=== PATIENT | male | born 1960 | race Two or more races ===

== ENCOUNTER 2025-06-06 19:03 | Emergency (ER) | payer OTHER ==
[~2025-06-06] VITALS: Ht 170.2 cm; Wt 88.0 kg
[2025-06-06] MEDS ORDERED: CHILDREN'S ASPI81 MG PO (19:59)
[2025-06-06] MEDS ORDERED: LIPITOR40 MG PO (19:59)
[2025-06-06] MEDS ORDERED: METFORMIN HCL1000 MG (19:59)
[2025-06-06] MEDS ORDERED: 0.9 % SODIUM CHLORIDE 1,000 ML IV ONE (20:45)
[2025-06-06] MEDS ORDERED: LEVALBUTEROL HCL 1.25 MG/3 ML SOLUTION IH ONE ×2 (21:04→21:15)
[2025-06-06] MEDS ORDERED: METHYLPREDNISOLONE SOD SUCC 125 MG VIAL IV ONE (21:15)
[2025-06-06 21:25] LABS: ABG PH 7.427 (7.35-7.45); ABG PO2 72.2 mmHg (80-100); BICARBONATE 22.2 mmol/l (23-25); o2 21 %
[2025-06-06 21:27] LABS: BASO % 0.3 % (0.1-1.2); EOS # 0.01 (0.04-0.54); EOS % 0.1 % (0.7-7.0); LYMPH # 0.82 (1.18-3.74); LYMPH % 5.9 % (19.3-53.1); MEAN PLATELET VOLUME 9.10 fl (9.4-12.4); MONO # 1.29 (0.24-0.82); MONO % 9.4 % (4.7-12.5); NEUT # 11.56 (1.56-6.13); NEUT % 83.8 % (34.0-71.1); RED CELL DISTRIBUTION WIDTH 12.3 % (11.6-14.4)
[2025-06-06] MEDS ORDERED: METHYLPREDNISOLONE SOD SUCC 125 MG VIAL ONE (21:27)
[2025-06-06 21:45] LABS: COVID-19 AG NEGATIVE (NEGATIVE)
[2025-06-06] MEDS ORDERED: CEFTRIAXONE SODIUM 1,000 MG VIAL IV ONE (21:45)
[2025-06-06] MEDS ORDERED: CEFTRIAXONE SODIUM 1,000 MG VIAL ONE (21:57)
[2025-06-06 21:59] LABS: ALT/SGPT 33.0 U/L (12-78); AST/SGOT 17.0 U/L (15-37); BILIRUBIN TOTAL 0.35 mg/dL (0.3-1.2); BUN CREA RATIO 14.0 (7.0-25.0); CREATININE SERUM 1.27 mg/dL (0.70-1.30); GFR 56.74; GLOBULINA 3.8 G/DL (2.4-3.5); GLUCOSE FASTING 159.0 mg/dL (65-100); OSMOLALITY SERUM 281.0 MOSM/KG (275-295)
[2025-06-06] MEDS ORDERED: PEPCID AC20 MG PO (22:16)
[2025-06-06] MEDS ORDERED: AZITHROMYCIN500 MG PO (22:16)
== END 2025-06-06 22:24 | disposition home or self-care (01) ==
LOC: ER 19:03
PROVIDERS: General Practice
DX: R06.02 Shortness of breath (principal); R00.0 Tachycardia, unspecified; Z20.822 Contact with and (suspected) exposure to COVID-19; I10 Essential (primary) hypertension; E11.9 Type 2 diabetes mellitus without complications; Z79.84 Long term (current) use of oral hypoglycemic drugs